=== PATIENT | male | born 1985 | race Hispanic/Latino ===

== ENCOUNTER 2018-01-06 18:26 | Emergency (ER) | payer SELFPAY ==
[2018-01-06] MEDS ORDERED: IBUPROFEN 600 MG TABLET ONE (18:39)
== END 2018-01-06 19:08 | disposition home or self-care (01) ==
LOC: EDH 18:26
DX: S63.591A Other specified sprain of right wrist, initial encounter (principal); Z72.0 Tobacco use; W18.39XA Other fall on same level, initial encounter; Y93.01 Activity, walking, marching and hiking; Y92.098 Other place in other non-institutional residence as the place of occurrence of the external cause; Y99.8 Other external cause status
CPT/HCPCS: 73110

== ENCOUNTER 2018-04-11 00:55 | Emergency (ER) | payer MEDICAID ==
[2018-04-11 01:59] LABS: BASOPHILS % (AUTO) 0.8 % (0.0-5.0); HEMATOCRIT 43.1 % (42-54); LYMPHOCYTES % (AUTO) 18.7 % (21.0-51.0); MEAN CORPUSCULAR HEMOGLOBIN 27.7 pg (27.0-33.0); MEAN CORPUSCULAR HGB CONC 33.2 g/dL (32.0-36.0); MEAN CORPUSCULAR VOLUME 83.5 fL (79-99); MONOCYTES % (AUTO) 6.8 % (3.0-13.0); NEUTROPHILS % (AUTO) 71.7 % (40.0-77.0); NUCLEATED RED BLOOD CELLS 0.1 % (0.0-0.19); PLATELET COUNT (AUTO) 300 K/uL (130-400); RED BLOOD CELL COUNT(AUTO) 5.17 MIL/uL (4.50-6.20); RED CELL DISTRIBUTION WIDTH 14.1 % (11.0-15.5); WHITE BLOOD COUNT (AUTO) 12.2 K/uL (4.8-10.8)
[2018-04-11 02:01] LABS: APPEARANCE,URINE Clear (CLEAR); BILIRUBIN,URINE Negative (NEGATIVE); COLOR,URINE Yellow (YELLOW); GLUCOSE, URINE (UA) Negative (NEGATIVE); KETONES,URINE Negative (NEGATIVE); LEUKOCYTE ESTERASE ,URINE Negative (NEGATIVE); NITRATE,URINE Negative (NEGATIVE); OCCULT BLOOD,URINE Negative (NEGATIVE); PROTEIN,URINE Trace (NEGATIVE)
[2018-04-11 02:10] LABS: CREATININE 1.1 mg/dL (0.5-1.5); POTASSIUM 4.3 mmol/L (3.5-5.1)
[2018-04-11 02:14] LABS: ALBUMIN 3.4 g/dL (3.5-5.0); BILIRUBIN,TOTAL 0.3 mg/dL (0.2-1.0); TOTAL PROTEIN, SERUM 7.5 g/dL (6.0-8.3)
[2018-04-11] MEDS ORDERED: DiphenhydrAMINE HCL 50 MG/ML VIAL ONE (02:27)
[2018-04-11] MEDS ORDERED: SODIUM CHLORIDE 0.9% 1000ML 1,000 ML IV ONE (02:28)
[2018-04-11] MEDS ORDERED: ONDANSETRON HCL MDV 20ML 2 MG/ML VIAL ONE (02:28)
[2018-04-11 04:32] LABS: INR 0.95 (0.85-1.15); PARTIAL THROMBOPLASTIN TIME 24.1 SEC (26.3-35.5)
== END 2018-04-11 05:04 | disposition home or self-care (01) ==
LOC: EDH 00:55
DX: J01.90 Acute sinusitis, unspecified (principal); I10 Essential (primary) hypertension; R79.1 Abnormal coagulation profile; Z72.0 Tobacco use
CPT/HCPCS: 36415; 70450; 80053; 81003; 82150; 83690; 85025; 85610; 85730; 96361; 96374; 96375; 99285; J1200; J7030

== ENCOUNTER 2018-04-12 04:23 | Emergency (ER) | payer MEDICAID, OTHER ==
[2018-04-12] MEDS ORDERED: ACETAMINOPHEN-CODEINE 300/30MG TAB ONE (04:58)
== END 2018-04-12 06:32 | disposition home or self-care (01) ==
LOC: EDH 04:23
DX: S90.32XA Contusion of left foot, initial encounter (principal); S99.912A Unspecified injury of left ankle, initial encounter; R51 Headache; I10 Essential (primary) hypertension; M41.9 Scoliosis, unspecified; Z72.0 Tobacco use; W23.0XXA Caught, crushed, jammed, or pinched between moving objects, initial encounter; Y93.02 Activity, running; Y92.89 Other specified places as the place of occurrence of the external cause; Y99.8 Other external cause status
CPT/HCPCS: 73610; 73630

== ENCOUNTER 2018-04-13 14:38 | Emergency (ER) | payer MEDICAID, OTHER | END 2018-04-13 15:44 | disposition home or self-care (01) | LOC: EDH 14:38 | DX: F41.1 Generalized anxiety disorder (principal); R06.02 Shortness of breath; I10 Essential (primary) hypertension; M41.9 Scoliosis, unspecified | CPT/HCPCS: 71045 ==

== ENCOUNTER 2020-12-24 10:02 | Inpatient (IN) | payer OTHER ==
[~2020-12-24] VITALS: Ht 165.1 cm; Wt 117.9 kg
[2020-12-24] VITALS (15 sets, daily range): BP systolic 129–174; BP diastolic 76–116
[2020-12-24] MEDS ORDERED: SODIUM CHLORIDE 0.9% 1000ML 1,000 ML IV ONE ×2 (10:26→18:34)
[2020-12-24 10:40] LABS: BASOPHILS % (AUTO) 0.5 % (0.0-5.0); EOSINOPHILS % (AUTO) 0.3 % (0.0-8.0); HEMATOCRIT 44.6 % (42-54); LYMPHOCYTES % (AUTO) 10.1 % (21.0-51.0); MEAN CORPUSCULAR HEMOGLOBIN 26.6 pg (27.0-33.0); MEAN CORPUSCULAR HGB CONC 33.2 g/dL (32.0-36.0); MEAN CORPUSCULAR VOLUME 80.1 fL (79-99); MONOCYTES % (AUTO) 8.3 % (3.0-13.0); NEUTROPHILS % (AUTO) 79.1 % (40.0-77.0); PLATELET COUNT (AUTO) 380 K/uL (130-400); RED BLOOD CELL COUNT(AUTO) 5.57 MIL/uL (4.50-6.20); RED CELL DISTRIBUTION WIDTH 13.5 % (11.0-15.5); WHITE BLOOD COUNT (AUTO) 19.5 K/uL (4.8-10.8)
[2020-12-24 10:45] LABS: APPEARANCE,URINE Clear (CLEAR); BILIRUBIN,URINE Negative (NEGATIVE); COLOR,URINE Yellow (YELLOW); GLUCOSE, URINE (UA) >=1000 mg/dL (NEGATIVE); KETONES,URINE >=160 mg/dL (NEGATIVE); LEUKOCYTE ESTERASE ,URINE Negative (NEGATIVE); NITRATE,URINE Negative (NEGATIVE); OCCULT BLOOD,URINE Moderate (NEGATIVE); PH,URINE 5.5 (5.0-8.0); PROTEIN,URINE 300 mg/dL (NEGATIVE); UROBILINOGEN,URINE 0.2 mg/dL (0.2-1.0)
[2020-12-24] MEDS ORDERED: MORPHINE SULFATE 2 MG/ML 1ML SYG ONE (10:46)
[2020-12-24] MEDS ORDERED: ONDANSETRON HCL 4 MG/2 ML VIAL ONE (10:46)
[2020-12-24] MEDS ORDERED: FAMOTIDINE/PF 20 MG/2 ML VIAL IV ONE (10:47)
[2020-12-24 10:51] LABS: AMPHET/METH SCREEN,URINE NEGATIVE (NEGATIVE); BARBITURATE SCREEN, URINE NEGATIVE (NEGATIVE); BENZODIAZEPINES SCREEN,URINE NEGATIVE (NEGATIVE); CANNABINOID SCREEN,URINE NEGATIVE (NEGATIVE); COCAINE SCREEN,URINE NEGATIVE (NEGATIVE); OPIATE SCREEN,URINE NEGATIVE (NEGATIVE); PHENCYCLIDINE SCREEN,URINE NEGATIVE (NEGATIVE)
[2020-12-24 11:04] LABS: CREATININE 0.9 mg/dL (0.5-1.5); POTASSIUM 4.9 mmol/L (3.5-5.1)
[2020-12-24 11:09] LABS: ALBUMIN 3.4 g/dL (3.5-5.0); BILIRUBIN,TOTAL 1.3 mg/dL (0.2-1.0)
[2020-12-24 11:21] LABS: WBC,URINE 0-1 /HPF (0-1)
[2020-12-24 11:22] LABS: BACTERIA,URINE Rare /HPF (None Seen); HYALINE CASTS, URINE 0-1 /LPF (0-1 /LPF); SQUAMOUS EPITHELIAL CELL,UR None Seen /HPF (0-2)
[2020-12-24] MEDS ORDERED: INSULIN REGULAR, HUMAN 3ML 100 UNIT in SODIUM CHLORIDE 0.9% 99 ML IV PRN ×4 (12:15→16:00)
[2020-12-24 13:43] LABS: ABG BASE EXCESS -9.1 mmol/L (-2.0-3.0); ABG HCO3 15.9 mmol/L (21.0-28.0); ABG PCO2 32 mmHg (35-48)
[2020-12-24] MEDS ORDERED: MORPHINE SULFATE 2 MG/ML 1ML SYG IV PRN (16:00)
[2020-12-24] MEDS ORDERED: ACETAMINOPHEN 325 MG TAB PO PRN ×2 (16:00)
[2020-12-24] MEDS ORDERED: ONDANSETRON HCL 4 MG/2 ML VIAL IV PRN (16:00)
[2020-12-24] MEDS ORDERED: ZOSYN 3.375GM+NS 50ML 50 ML IV ONE (16:59)
[2020-12-24 17:01] LABS: CHOLESTEROL 222 mg/dL (<200); LDL DIRECT 56 mg/dL (0-99); LIPASE 432 U/L (114-286); TRIGLYCERIDES 990 mg/dL (30-200)
[2020-12-24] MEDS ORDERED: ACETAMINOPHEN 325 MG TAB ONE (17:03)
[2020-12-24 17:16] LABS: HDL CHOLESTEROL 25 mg/dL (29-71)
[2020-12-24] MEDS: D5W-1/2 NS/20MEQ KCL 1,000 ML IV SCH ×2 (18:45→23:25)
[2020-12-24 19:01] LABS: ALBUMIN 3.1 g/dL (3.5-5.0); BILIRUBIN,TOTAL 0.6 mg/dL (0.2-1.0); CREATININE 0.8 mg/dL (0.5-1.5); POTASSIUM 3.9 mmol/L (3.5-5.1); TOTAL PROTEIN, SERUM 8.1 g/dL (6.0-8.3)
[2020-12-24] MEDS ORDERED: POTASSIUM PHOS 15 mMOL+NS250ML 250 ML IV PRN (20:15)
[2020-12-24] MEDS ORDERED: MAGNESIUM 2GM PREMIX 50ML 50 ML IV PRN (20:15)
[2020-12-24] MEDS ORDERED: POTASSIUM CHLORIDE 20 MEQ ERTAB PO PRN (20:15)
[2020-12-24] MEDS ORDERED: POTASSIUM CHLORIDE 10% ELIXIR 20 MEQ/15 ML UDCUP PO PRN (20:15)
[2020-12-24] MEDS: SODIUM CHLORIDE 0.9% 1000ML 1,000 ML IV SCH (20:27)
[2020-12-24] MEDS: ZOSYN 3.375GM+NS 50ML 50 ML IV SCH (20:27)
[2020-12-24] MEDS: METOPROLOL TARTRATE 25 MG TAB PO SCH (20:28)
[2020-12-24] MEDS ORDERED: LISINOPRIL 5 MG TABLET PO SCH (20:30)
[2020-12-24 22:41] LABS: CREATININE 0.9 mg/dL (0.5-1.5); MAGNESIUM 1.8 mg/dL (1.80-2.40); PHOSPHORUS 2.5 mg/dL (2.5-4.9); POTASSIUM 3.6 mmol/L (3.5-5.1)
[2020-12-24] MEDS: POTASSIUM CHLORIDE 20MEQ/100ML 100 ML IV PRN (23:49)
[2020-12-24] MEDS ORDERED: LIDOCAINE HCL-MPF 1% 2ML VIAL ONE (23:53)
[2020-12-25] VITALS (23 sets, daily range): BP systolic 102–148; BP diastolic 53–93
[2020-12-25] MEDS ORDERED: LIDOCAINE HCL-MPF 1% 2ML VIAL IV PRN
[2020-12-25] MEDS: SODIUM CHLORIDE 0.9% 1000ML 1,000 ML IV SCH ×4 (03:16→22:55)
[2020-12-25] MEDS: ZOSYN 3.375GM+NS 50ML 50 ML IV SCH ×3 (05:15→20:40)
[2020-12-25 05:24] LABS: CREATININE 0.9 mg/dL (0.5-1.5); MAGNESIUM 2.3 mg/dL (1.80-2.40); PHOSPHORUS 5.2 mg/dL (2.5-4.9); POTASSIUM 3.7 mmol/L (3.5-5.1)
[2020-12-25] MEDS: D5W-1/2 NS/20MEQ KCL 1,000 ML IV SCH ×3 (06:05→19:25)
[2020-12-25] MEDS: POTASSIUM CHLORIDE 20MEQ/100ML 100 ML IV PRN (08:26)
[2020-12-25 10:06] LABS: CREATININE 0.9 mg/dL (0.5-1.5); POTASSIUM 4.1 mmol/L (3.5-5.1)
[2020-12-25] MEDS: METOPROLOL TARTRATE 25 MG TAB PO SCH ×2 (10:46→20:41)
[2020-12-25] MEDS: LISINOPRIL 5 MG TABLET PO SCH (10:47)
[2020-12-25] MEDS ORDERED: INSULIN GLARGINE 100 UNITS/ML 10 ML VIAL SQ SCH (11:15)
[2020-12-25] MEDS: INSULIN HUMULIN R 100 UNIT/ML 3ML SQ SCH ×5 (11:30→21:19)
[2020-12-25] MEDS ORDERED: MORPHINE SULFATE 4 MG/1ML SYG ONE (12:05)
[2020-12-25] MEDS ORDERED: MORPHINE SULFATE 4 MG/1ML SYG IM PRN (12:15)
[2020-12-25 17:57] LABS: CREATININE 0.9 mg/dL (0.5-1.5); POTASSIUM 3.7 mmol/L (3.5-5.1)
[2020-12-26] MEDS: D5W-1/2 NS/20MEQ KCL 1,000 ML IV SCH ×4 (02:05→20:54)
[2020-12-26 03:44] VITALS: BP 90/63
[2020-12-26] MEDS: ZOSYN 3.375GM+NS 50ML 50 ML IV SCH ×3 (04:20→20:53)
[2020-12-26] MEDS: SODIUM CHLORIDE 0.9% 1000ML 1,000 ML IV SCH ×3 (05:35→17:37)
[2020-12-26] MEDS: INSULIN HUMULIN R 100 UNIT/ML 3ML SQ SCH ×8 (06:23→21:19)
[2020-12-26 07:41] LABS: BASOPHILS % (AUTO) 0.9 % (0.0-5.0); EOSINOPHILS % (AUTO) 2.9 % (0.0-8.0); HEMATOCRIT 40.3 % (42-54); MEAN CORPUSCULAR HEMOGLOBIN 26.3 pg (27.0-33.0); MEAN CORPUSCULAR HGB CONC 32.5 g/dL (32.0-36.0); MEAN CORPUSCULAR VOLUME 80.9 fL (79-99); MONOCYTES % (AUTO) 9.1 % (3.0-13.0); NEUTROPHILS % (AUTO) 61.3 % (40.0-77.0); PLATELET COUNT (AUTO) 320 K/uL (130-400); RED BLOOD CELL COUNT(AUTO) 4.98 MIL/uL (4.50-6.20); WHITE BLOOD COUNT (AUTO) 7.6 K/uL (4.8-10.8)
[2020-12-26 07:55] LABS: HEMOGLOBIN A1C 12.8 % (4.0-6.0)
[2020-12-26 07:56] LABS: ALBUMIN 2.7 g/dL (3.5-5.0); BILIRUBIN,TOTAL 0.5 mg/dL (0.2-1.0); CREATININE 0.9 mg/dL (0.5-1.5); POTASSIUM 3.6 mmol/L (3.5-5.1); TOTAL PROTEIN, SERUM 7.3 g/dL (6.0-8.3)
[2020-12-26] MEDS ORDERED: INSULIN GLARGINE 100 UNITS/ML 10 ML VIAL SQ SCH (08:00)
[2020-12-26 08:12] VITALS: BP 119/72
[2020-12-26] MEDS: METOPROLOL TARTRATE 25 MG TAB PO SCH ×2 (09:55→21:17)
[2020-12-26] MEDS: LISINOPRIL 5 MG TABLET PO SCH (09:55)
[2020-12-26 11:28] VITALS: BP 98/65
[2020-12-26 16:36] VITALS: BP 103/53
[2020-12-26 20:18] VITALS: BP 115/68
[2020-12-26 23:18] VITALS: BP 104/65
[2020-12-27] MEDS: SODIUM CHLORIDE 0.9% 1000ML 1,000 ML IV SCH (01:59)
[2020-12-27 03:41] VITALS: BP 123/69
[2020-12-27] MEDS: D5W-1/2 NS/20MEQ KCL 1,000 ML IV SCH (04:45)
[2020-12-27] MEDS: ZOSYN 3.375GM+NS 50ML 50 ML IV SCH (05:31)
[2020-12-27] MEDS: INSULIN HUMULIN R 100 UNIT/ML 3ML SQ SCH ×4 (06:34→12:06)
[2020-12-27] MEDS ORDERED: INSULIN GLARGINE 100 UNITS/ML 10 ML VIAL SQ SCH (08:00)
[2020-12-27] MEDS: METOPROLOL TARTRATE 25 MG TAB PO SCH (08:35)
[2020-12-27] MEDS: LISINOPRIL 5 MG TABLET PO SCH (08:35)
[2020-12-27 08:36] VITALS: BP 107/67
[2020-12-27 12:00] VITALS: BP 119/54
[2020-12-27 16:31] VITALS: BP 108/59
== END 2020-12-27 15:30 | disposition home or self-care (01) | DRG 638 ==
LOC: EDH 10:02 → EDHIP 10:03 → 2CH 17:46 → 3BH 12-25 21:37
PROVIDERS: ADMIT Internal Medicine; ATTEND Internal Medicine
DX: E11.10 Type 2 diabetes mellitus with ketoacidosis without coma (principal); E87.1 Hypo-osmolality and hyponatremia; D72.829 Elevated white blood cell count, unspecified; E86.0 Dehydration; K76.0 Fatty (change of) liver, not elsewhere classified; I10 Essential (primary) hypertension; M41.9 Scoliosis, unspecified; F41.9 Anxiety disorder, unspecified; E78.1 Pure hyperglyceridemia; Z83.3 Family history of diabetes mellitus; Z82.49 Family history of ischemic heart disease and other diseases of the circulatory system; Z82.5 Family history of asthma and other chronic lower respiratory diseases; Z86.14 Personal history of Methicillin resistant Staphylococcus aureus infection
CPT/HCPCS: 36415; 36600; 74176; 76705; 80048; 80053; 80061; 80305; 81001; 82550; 82803; 82948; 83036; 83605; 83690; 83735; 84100; 84478; 85025; 87040; 93005; G0378; J1815; J2270; J2405; J2543; J3475; J3480; J3490; J7030

== ENCOUNTER 2023-05-12 16:02 | Emergency (ER) | payer OTHER ==
[~2023-05-12] VITALS: Ht 167.6 cm; Wt 108.0 kg
[2023-05-12 19:30] VITALS: BP 122/74
== END 2023-05-12 19:37 | disposition home or self-care (01) ==
LOC: EDH 16:02
DX: S63.592A Other specified sprain of left wrist, initial encounter (principal); E11.9 Type 2 diabetes mellitus without complications; X58.XXXA Exposure to other specified factors, initial encounter; Y93.89 Activity, other specified; Y92.89 Other specified places as the place of occurrence of the external cause; Y99.8 Other external cause status
CPT/HCPCS: 73110

== ENCOUNTER 2025-07-31 13:50 | Emergency (ER) | payer SELFPAY ==
[~2025-07-31] VITALS: Ht 165.1 cm; Wt 98.9 kg
--- NOTE | 2025-07-31 14:05 | ERN ---
General Chief Complaint: Low Back Pain/Injury Stated Complaint: LOW BACK PAIN Time Seen by MD: 13:51 Source: patient History of Present Illness Initial Comments Patient is a 40-year-old male coming in complaining of right hip pain. Per patient he was lifting up his significant other. He states that the pain is present in the right hip region radiating down the leg. He is able to ambulate with some discomfort. Allergies: Coded Allergies: No Known Drug Allergies (Unverified Allergy, Unknown, 05/08/17) Home Meds No Active Prescriptions or Reported Meds Past Medical History Past Medical History: Diabetes-Type II, Other Medical History Other: DKA Past Surgical History: None ROS Dictation CONSTITUTIONAL: No chills, no fever, no weakness, no diaphoresis, no malaise. HEAD/FACE: No signs of trauma. EENT: No eye pain, no blurred vision, no tearing, no double vision, no ear pain, no ear discharge, no nose pain, no nasal congestion, no throat pain, no throat swelling, no mouth pain. RESPIRATORY: No cough, no orthopnea, no SOB, no stridor, no wheezing. CARDIOVASCULAR: No chest pain, no edema, no palpitations, no syncope. GASTROINTESTINAL/ABDOMINAL: No abdominal pain, no constipation, no diarrhea, no nausea, no vomiting. GENITOURINARY: No abnormal discharge, no dysuria, no frequent urination, no hematuria. No complaints of pain in the genitals. MUSCULOSKELETAL: back pain, no gout, joint pain, no joint swelling, muscle pain, no muscle stiffness, no neck pain. INTEGUMENTARY: No change in color, no change in hair/nails, no dryness, no lesion, no lumps, no rash. NEUROLOGICAL/PSYCH: No anxiety, not depressed, no emotional problem, no headache, no numbness, no pre-existing deficit, no history of seizures, no tremors, no weakness. HEMATOLOGIC/LYMPHATIC: Not anemic, no history of blood clots, no apparent bleeding, no bruising, glands not swollen. All Systems Negative, Except as Noted. Physical Exam Physical Exam Dictation VITAL SIGNS: Reviewed. GENERAL APPEARANCE: Alert, oriented x3, no acute distress, obese. HEAD AND FACE: Non-traumatic. EYES: PERRL, pink conjunctivas, eyelid no trauma, anterior chamber clear. EARS: Pinnas intact and no signs of trauma or erythema. Ear canals clear and no discharge. TMs no erythema. NOSE: No discharge, no bleeding. OROPHARYNX: Mouth normal, teeth no caries, tongue pink. Pharynx clear, no erythema. Tonsils no exudates, no abscesses noted. Mucous membrane moist. NECK: Supple, non-tender, no thyromegaly, no masses, no JVD, no bruits. BREAST: Deferred. CHEST: No tenderness, no crepitus, no paradoxical movement, no retractions. LUNGS: Clear, well-ventilated, symmetric, no rales, no wheezing, no rhonchi, no stridor, good breath sounds bilaterally. HEART: Regular rate, regular rhythm, no murmur, no gallops. VASCULAR: No peripheral edema. ABDOMEN: Soft, positive bowel sounds, nondistended, no guarding, nontender, no rebound, no masses no hepatomegaly, no splenomegaly, no Dos Santos's sign, no h ernias. RECTAL: Deferred. GENITAL: Deferred. NEUROLOGICAL: Normal speech, gross motor function intact, gross sensory functi on intact. MUSCULOSKELETAL: Neck nontender, full range of motion, back nontender, full range of motion. EXTREMITIES: Nontender, full range of motion. SKIN: Color pink, dry, no turgor, no rash, no lacerations, no abrasions, no contusions. LYMPHATICS: Deferred. Results Laboratory and Microbiology Labs Reviewed?: Yes MDM MDM: Differential diagnosis: Back strain, lumbar strain, Rationale: Tests considered and ordered secondary to shared decision making include: Previous outside records reviewed: Old ER visits. Risk of complication and/or morbidity or mortality of patient management: None Medications-Per medication reconciliation Need for hospitalization: Patient does not meet criteria for hospitalization. Need for emergency major/minor surgery: No Patient is a 40-year-old male coming in complaining of right hip strain after he was trying to lift his . Patient was treated with anti-inflammatories and antispasmodics lidocaine patches also placed. We will treat the pain conservatively due to the mechanism of injury at the also advised him appropriate follow up with PCP for long-term management. ED Course Orders Procedure Category Date Status Time Orphenadrine Citrate PHA 07/31/25 Complete (Norflex) 14:00 Ketorolac PHA 07/31/25 Complete Tromethamine 30mg/Ml 14:00 Current Medications Medications (Trade) Dose Ordered Sig/Elizabeth Route PRN Reason Start Time Stop Time Status Last Admin Dose Admin Ketorolac Tromethamine (toRADol) 30 mg ONCE ONCE IM 07/31/25 14:00 07/31/25 14:01 DC 07/31/25 14:29 Orphenadrine Citrate (Norflex) 60 mg ONCE ONCE IM 07/31/25 14:00 07/31/25 14:01 DC 07/31/25 14:29 Vital Signs Date Time Temp Pulse Resp B/P (MAP) Pulse Ox O2 Delivery O2 Flow Rate FiO2 07/31/25 14:20 98.1 65 16 125/70 98 Room Air* 0 21 07/31/25 13:51 98.1 68 16 126/72 97 Room Air DX & DISP Disposition: Discharge Departure Impression: Primary Impression: Strain of muscle, fascia and tendon of lower back, in itial encounter Additional Impression: Hip strain Condition: Stable Scripts Naproxen (Naproxen) 500 Mg Tablet 1 TAB PO BID for pain for 7 Days, #14 TAB 0 Refills Prov: GAURAV LORENZ MD 07/31/25 Methocarbamol (Robaxin) 750 Mg Tab 1 TAB PO BID for 7 Days, #14 TAB 0 Refills Prov: GAURAV LORENZ MD 07/31/25 Additional Instructions: FOLLOW-UP WITH PRIMARY CARE PROVIDER IN 1 TO 2 DAYS. TAKE MEDICATIONS DIRECTED HERE IN THE EMERGENCY ROOM. OKAY TO CONTINUE HOME MEDICATIONS UNLESS OTHERWISE DISCUSSED DURING YOUR VISIT IN THE EMERGENCY ROOM TODAY. RETURN TO YOUR NEAREST EMERGENCY ROOM IF SYMPTOMS WORSEN OR IF THERE IS NO IMPROVEMENT. CALL 911 IF YOU NEED IMMEDIATE ASSISTANCE. TAKE TYLENOL [id number] NEEDED AND IF NO CONTRAINDICATIONS ARE PRESENT. INCREASE ORAL HYDRATION. A WOUND CULTURE OR URINE CULTURE WAS ORDERED HERE IN THE EMERGENCY ROOM DEPARTMENT PLEASE FOLLOW-UP WITH PRIMARY CARE PROVIDER AND ADVISE THEM TO GET REPORTS FROM OUR FACILITY. IF YOU HAD ANY RICKIE WRAP/SPLINTS THAT WERE APPLIED HERE, PLEASE DO NOT REMOVE THEM UNTIL YOU SEE YOUR PRIMARY CARE OR SPECIALTY. Referrals: Referrals: SELF,REFERRAL (PCP) MIKALA MOREL MD Time of Disposition: 14:49 GAURAV LORENZ MD Jul 31, 2025 14:05
[2025-07-31 14:20] VITALS: BP 125/70; PULSE 65; RESP 16; TEMP 98; O2SAT 98
[2025-07-31] MEDS: ORPHENADRINE 60MG/2ML IM ONE (14:29)
[2025-07-31] MEDS ORDERED: METH-662 PO (14:50)
[2025-07-31] MEDS ORDERED: NAPR-1194 PO (14:50)
[2025-07-31] MEDS: LIDOCAINE 4% ADH..PATCH TP ONE (14:59)
== END 2025-07-31 15:20 | disposition home or self-care (01) ==
LOC: EDH 13:50
DX: S39.012A Strain of muscle, fascia and tendon of lower back, initial encounter (principal); S76.011A Strain of muscle, fascia and tendon of right hip, initial encounter; E11.9 Type 2 diabetes mellitus without complications; X50.9XXA Other and unspecified overexertion or strenuous movements or postures, initial encounter; Y93.89 Activity, other specified; Y92.89 Other specified places as the place of occurrence of the external cause; Y99.8 Other external cause status
CPT/HCPCS: 99284; 96372 ×2; J1885; J2360

== ENCOUNTER 2025-08-03 13:25 | Emergency (ER) | payer SELFPAY ==
[~2025-08-03] VITALS: Ht 165.1 cm; Wt 98.9 kg
[~2025-08-03 13:25] MED LIST: METH-662 PO; NAPR-1194 PO
[2025-08-03 13:51] LABS: IMMATURE GRANULOCYTE ABSOLUTE 0.09 K/uL (0-1); NUCLEATED RED BLOOD CELLS 0.0 % (0.0-0.19); PLATELET COUNT (AUTO) 375 K/uL (130-400); RED BLOOD CELL COUNT(AUTO) 5.42 MIL/uL (4.50-6.20); RED CELL DISTRIBUTION WIDTH 13.4 % (11.0-15.5); WHITE BLOOD COUNT (AUTO) 11.2 K/uL (4.8-10.8)
[2025-08-03 13:59] LABS: CREATININE 0.9 mg/dL (0.5-1.3); GLOMERULAR FILTR. RATE CALC 112.0 mL/min (>90); GLUCOSE,RANDOM 113.0 mg/dL (70-105); SODIUM SERUM 138.0 mmol/L (136-145); UREA NITROGEN, BLOOD 12.0 mg/dL (7-18)
--- NOTE | 2025-08-03 14:10 | ERN ---
ED Note History of Present Illness Stated Complaint: HIP INJURY/ BLOODY STOOL Chief Complaint: Hip Pain/Injury Time Seen by MD: 13:32 Time Seen by Midlevel: 13:35 Dictation: 40-year-old male coming in with complaints of low back pain and right hip pain. Patient states this started on the . Patient states he was seen here and was diagnosed with a a strained muscle however states the pain has not resolved. Last time he took his muscle relaxer was yesterday. Denies having any incontinence, urinary retention, unilateral weakness or numbness. Allergies: Coded Allergies: No Known Drug Allergies (Unverified Allergy, Unknown, 05/08/17) Home Meds Active Scripts Naproxen (Naproxen) 500 Mg Tablet, 1 TAB PO BID for pain for 7 Days, #14 TAB 0 Refills Prov:GAURAV LORENZ MD 07/31/25 Methocarbamol (Robaxin) 750 Mg Tab, 1 TAB PO BID for 7 Days, #14 TAB 0 Refills Prov:GAURAV LORENZ MD 07/31/25 Past Medical History Past Medical History: Diabetes-Type II, Other Additional Past Medical Hx: SCOLIOSIS Surgical History: None Review of System Dictation Constitutional: Negative for fever,chills, and weight loss Eyes: Negative for injury, pain,redness, and discharge ENT: Negative for injury,pain or swelling Cardiovascular: Negative for chest pain, palpitations, and edema Respiratory: Negative for shortness of breath, cough, and wheezing, Abdomen/GI: Negative for abdominal pain, nausea, vomiting, diarrhea, and constipation Back: Complaining of lower back pain and tailbone pain and right hip pain : Negative for injury, bleeding and discharge MS/Extremity: Negative for injury and deformity Skin: Negative for rash, and discoloration Neuro: Negative for headache, weakness, numbness, tingling, and seizure Psych: Negative for suicide ideation, homicidal ideation, and hallucinations Review of Systems: was completed Initial Vital Sign VS Vital Signs Date Time Temp Pulse Resp B/P (MAP) Pulse Ox O2 Delivery O2 Flow Rate FiO2 08/03/25 13:30 99.1 80 12 132/72 97 Room Air 0 08/03/25 14:30 21 Physical Exam Dictation General: awake, alert, NAD Head/Face: Normocephalic, atraumatic Eyes: PERRL, EOMI, vision at baseline ENT: oral cavity clear, TMs clear, no signs of infection Neck: Trachea midline, supple, no nuchal rigidity Cardiovascular: RRR, normal S1/S2, No MRGs, no JVD Respiratory: CTAB, no respiratory distress, No rales or wheezes Abdomen: Soft, non-tender, non-distended, normal bowel sounds, no guarding or rebound. Skin: Warm, dry, normal turgor, no rash MS/Extremity: Pulses equal, no cyanosis, neurovascular intact, FROM Neuro: COAx4, GCS 15, strength 5/5, CN 2-12 intact, normal cerebellar exam, normal gait, Psych: Normal behavior, mood, and affect normal Results (Laboratory/Radiology) Laboratory/Radiology Laboratory Tests Test 08/03/25 13:44 White Blood Count 11.2 K/uL (4.8-10.8) H Red Blood Count 5.42 MIL/uL (4.50-6.20) Hemoglobin 15.9 g/dL (14.0-18.0) Hematocrit 47.7 % (42-54) Mean Corpuscular Volume 88.0 fL (79-99) Mean Corpuscular Hemoglobin 29.3 pg (27.0-33.0) Mean Corpuscular Hemoglobin Concent 33.3 g/dL (32.0-36.0) Red Cell Distribution Width 13.4 % (11.0-15.5) Platelet Count 375 K/uL (130-400) Mean Platelet Volume 11.0 fL (7.5-10.5) H Immature Granulocyte % (Auto) 0.8 % (0-1) Neutrophils (%) (Auto) 68.9 % (40.0-77.0) Lymphocytes (%) (Auto) 19.1 % (21.0-51.0) L Monocytes (%) (Auto) 8.3 % (3.0-13.0) Eosinophils (%) (Auto) 2.2 % (0.0-8.0) Basophils (%) (Auto) 0.7 % (0.0-5.0) Neutrophils # (Auto) 7.7 K/uL (1.8-7.7) Lymphocytes # (Auto) 2.1 K/uL (1.0-4.8) Monocytes # (Auto) 0.9 K/uL (0.1-1.0) Eosinophils # (Auto) 0.24 K/uL (0.00-0.70) Basophils # (Auto) 0.08 K/uL (0.00-0.20) Absolute Immature Granulocyte (auto 0.09 K/uL (0-1) Nucleated Red Blood Cells 0.0 % (0.0-0.19) Sodium Level 138 mmol/L (136-145) Potassium Level 4.4 mmol/L (3.5-5.1) Chloride Level 101 mmol/L (101-111) Carbon Dioxide Level 32 mmol/L (21-32) Blood Urea Nitrogen 12 mg/dL (7-18) Creatinine 0.9 mg/dL (0.5-1.3) Glomerular Filtration Rate Calc 112 mL/min (>90) Random Glucose 113 mg/dL (70-105) H Total Calcium 8.9 mg/dL (8.5-10.1) Labs Reviewed?: Yes X-RAY Comment: [address] [id number] IMAGING REPORT Signed PATIENT: NARGIS HOLCOMB MR#: [id number] : 1985 SEX: M AGE: 40 LOCATION: [facility] ORDER [id number] STATUS: [facility] REPORT#: [id number] SERVICE 1336 REASON: pain ORDERING PHYSICIAN: RAUL PRUETT NP PROCEDURE: PELVIS - PELVIS 1-2VWS EXAM: CR Pelvis, 1 View. CLINICAL HISTORY: pain COMPARISON: None provided. FINDINGS: BONES: No acute fracture or aggressive appearing osseous lesion. JOINTS: No dislocation. The joint spaces are normal. SOFT TISSUES: The soft tissues are unremarkable. IMPRESSION: No acute osseous abnormality. /[place] DICTATED BY: KAPIL FRANCISCO Jr., MD DATE: 08/03/251516 ELECTRONICALLY SIGNED BY: KAPIL FRANCISCO Jr., MD DATE: 08/03/251516 [address] [address] IMAGING REPORT Signed PATIENT: NARGIS HOLCOMB MR#: [id number] : 1985 SEX: M AGE: 40 LOCATION: [facility] ORDER 1340 STATUS: REG ER REPORT#: [id number] SERVICE 1336 REASON: pain ORDERING PHYSICIAN: RAUL PRUETT NP PROCEDURE: LUMB 2 3VW - LUMBAR SPINE 2-3VWS EXAM: CR Lumbar Spine, 2 View. CLINICAL HISTORY: pain COMPARISON: None provided. FINDINGS: BONES: No acute fracture or aggressive appearing osseous lesion. ALIGNMENT: Alignment is within normal limits. No significant scoliosis. DISCS / DEGENERATIVE CHANGES: The disc spaces are preserved. SOFT TISSUES: The soft tissues are unremarkable. IMPRESSION: No acute lumbar spine abnormality evident. /[place] DICTATED BY: KAPIL FRANCISCO Jr., MD DATE: 08/03/251516 ELECTRONICALLY SIGNED BY: KAPIL FRANCISCO Jr., MD DATE: 08/03/251516 ED Course ED Course Orders Procedure Category Date Status Time Cbc With Differential LAB 08/03/25 Complete 13:36 Basic Metabolic Panel LAB 08/03/25 Complete 13:36 Occult Blood Stool LAB 08/03/25 Logged Single Only 13:36 Lumbar Spine 2-3vws RAD 08/03/25 Resulted 13:36 Pelvis 1-2vws RAD 08/03/25 Resulted 13:36 Morphine 4mg Syg PHA 08/03/25 Complete (Morphine 4mg Syg) 13:36 Orphenadrine Citrate PHA 08/03/25 Complete (Norflex) 13:36 Ketorolac PHA 08/03/25 Complete Tromethamine 15mg/Ml 13:36 Current Medications Medications (Trade) Dose Ordered Sig/Elizabeth Route PRN Reason Start Time Stop Time Status Last Admin Dose Admin Ketorolac Tromethamine (toRADol) 15 mg ONCE STAT IM 08/03/25 13:36 08/03/25 13:40 DC 08/03/25 14:46 Morphine Sulfate (morPHINE 4MG SYG) 4 mg ONCE STAT IM 08/03/25 13:36 08/03/25 13:40 DC Orphenadrine Citrate (Norflex) 60 mg ONCE STAT IM 08/03/25 13:36 08/03/25 13:40 DC 08/03/25 14:47 Vital Signs Date Time Temp Pulse Resp B/P (MAP) Pulse Ox O2 Delivery O2 Flow Rate FiO2 08/03/25 14:30 98.2 68 18 144/78 100 Room Air* 0 21 08/03/25 13:30 99.1 80 12 132/72 97 Room Air 0 Medical Decision Making MDM MDM: 40-year-old male coming in with complaints of low back pain and right hip pain. Patient states this started on the . Patient states he was seen here and was diagnosed with a a strained muscle however states the pain has not resolved. Last time he took his muscle relaxer was yesterday. Denies having any incontinence, urinary retention, unilateral weakness or numbness. Patient also stated he has been having blood streaks in his stool. Patient states he just take very frequent some ibuprofen due to his scoliosis. Blood work unremarkable. X-rays unremarkable. On 11/25 to perform a rectal exam to look for any polyps, tita blood, or hemorrhoids, however patient refused. Educated patient the importance of having the rectal exam still refused. Educated patient then to stop taking some ibuprofen or naproxen and started taking Tylenol see if this helps resolve that problem and also in case he is straining he needs to take some stool softeners. Patient verbalized understanding, answered all questions. Patient also refusing pain medication here in the ER, states he just wanted to be checked to see if anything was broken. Differential diagnosis: Strain, hair fracture, GI bleed Rationale: Tests considered and ordered secondary to shared decision making include: Previous outside records reviewed: Old ER visits. Risk of complication and/or morbidity or mortality of patient management: None Medications-Per medication reconciliation Need for hospitalization: Patient does not meet criteria for hospitalization. Need for emergency major/minor surgery: No There are no social concerns with this patient. Prescription drug management Prescriptions will include symptomatic care Patient's prior external medical records from other ER visits were reviewed by me as indicated. Prior testing and results from previous visits were reviewed. Prior tests were taken into account with medical decision making and resource utilization, independent historian/historians were used to obtain complete medical history. I independently interpreted the test that were performed, results were reviewed by me and considered findings on radiology if ordered. Medical management and examination interpretation discussions were had by me with other qualified healthcare professionals as indicated for the patient's care. DX & DISP Disposition: Discharge Departure Impression: Primary Impression: Hip strain Additional Impression: Strain of muscle, fascia and tendon of lower back, initial encounter Condition: Stable Additional Instructions: If you are straining to have a bowel movement please take stool softeners. Stop taking the ibuprofen or naproxen for your scoliosis, take more Tylenol every 6-8 hours and follow up with your PCP. If anything worsens please return back to the emergency room. Referrals: SELF,REFERRAL (PCP) Time of Disposition: 14:54 I have reviewed the case, and I agree with, Diagnosis and Plan RAUL PRUETT NP Aug 03, 2025 14:10
--- NOTE | 2025-08-03 14:18 | HMCIMG ---
EXAM: CR Lumbar Spine, 2 View. CLINICAL HISTORY: pain COMPARISON: None provided. FINDINGS: BONES: No acute fracture or aggressive appearing osseous lesion. ALIGNMENT: Alignment is within normal limits. No significant scoliosis. DISCS / DEGENERATIVE CHANGES: The disc spaces are preserved. SOFT TISSUES: The soft tissues are unremarkable. IMPRESSION: No acute lumbar spine abnormality evident. /[place]
--- NOTE | 2025-08-03 14:19 | HMCIMG ---
EXAM: CR Pelvis, 1 View. CLINICAL HISTORY: pain COMPARISON: None provided. FINDINGS: BONES: No acute fracture or aggressive appearing osseous lesion. JOINTS: No dislocation. The joint spaces are normal. SOFT TISSUES: The soft tissues are unremarkable. IMPRESSION: No acute osseous abnormality. /[place]
[2025-08-03] MEDS: ORPHENADRINE 60MG/2ML IM STA (14:47)
[2025-08-03 15:15] VITALS: BP 140/72; PULSE 68; RESP 18; TEMP 98.2; O2SAT 97
== END 2025-08-03 15:19 | disposition home or self-care (01) ==
LOC: EDH 13:25
DX: S76.011A Strain of muscle, fascia and tendon of right hip, initial encounter (principal); S39.012A Strain of muscle, fascia and tendon of lower back, initial encounter; E11.9 Type 2 diabetes mellitus without complications; Z79.899 Other long term (current) drug therapy; X58.XXXA Exposure to other specified factors, initial encounter; Y93.89 Activity, other specified; Y92.89 Other specified places as the place of occurrence of the external cause; Y99.8 Other external cause status
CPT/HCPCS: 99284; 80048; 85025; 36415; 72100; 72170; 96372 ×2; J1885; J2270; J2360

== ENCOUNTER 2025-08-16 01:23 | Emergency (ER) | payer SELFPAY ==
[~2025-08-16] VITALS: Ht 165.1 cm; Wt 98.9 kg
[2025-08-16 01:24] VITALS: BP 114/75; PULSE 65; RESP 20; TEMP 97.9
[2025-08-16] MEDS ORDERED: IBUP-1492 PO (01:39)
--- NOTE | 2025-08-16 01:43 | ERN ---
ED Note History of Present Illness Stated Complaint: C/O PAIN TO RT HIP/LOWER BACK PAIN; INJURY ON Chief Complaint: Low Back Pain/Injury Time Seen by MD: :25 Dictation: 40-YEAR-OLD MALE PRESENTS TO ER STATES HE CONTINUES WITH RIGHT HIP PAIN. PATIENT STATES HE WAS SEEN HERE ABOUT 10 DAYS AGO AND WAS TOLD HAD A MUSCLE DURING HIS RIGHT HIP. X-RAYS NEGATIVE AT THAT TIME. PATIENT STATES HE CONT INUES WITH THE PAIN AND THOUGHT HE COME IN TODAY FOR FURTHER EVALUATION LIKE AN MRI Allergies: Coded Allergies: No Known Drug Allergies (Unverified Allergy, Unknown, 05/08/17) Home Meds Active Scripts Naproxen (Naproxen) 500 Mg Tablet, 1 TAB PO BID for pain for 7 Days, #14 TAB 0 Refills Prov:GAURAV LORENZ MD 07/31/25 Methocarbamol (Robaxin) 750 Mg Tab, 1 TAB PO BID for 7 Days, #14 TAB 0 Refills Prov:GAURAV LORENZ MD 07/31/25 Past Medical History Past Medical History: Diabetes-Type II Additional Past Medical Hx: SCOLIOSIS Surgical History: None Review of System Dictation CONSTITUTIONAL: NEGATIVE FOR FEVER,CHILLS, AND WEIGHT LOSS EYES: NEGATIVE FOR INJURY, PAIN,REDNESS, AND DISCHARGE ENT: NEGATIVE FOR INJURY,PAIN OR SWELLING CARDIOVASCULAR: NEGATIVE FOR CHEST PAIN, PALPITATIONS, AND EDEMA RESPIRATORY: NEGATIVE FOR SHORTNESS OF BREATH, COUGH, WHEEZING, AND PLEURITIC CHEST PAIN ABDOMEN/GI: NEGATIVE FOR ABDOMINAL PAIN, NAUSEA, VOMITING AND DIARRHEA. BACK: NEGATIVE FOR PAIN OR INJURY : NEGATIVE FOR INJURY, BLEEDING AND DISCHARGE MS/EXTREMITY: POSITIVE FOR PAIN IN INJURY SKIN: NEGATIVE FOR RASH, AND DISCOLORATION NEURO: NEGATIVE FOR HEADACHE, WEAKNESS, NUMBNESS, TINGLING, AND SEIZURE PSYCH: NEGATIVE FOR SUICIDE IDEATION, HOMICIDAL IDEATION, AND HALLUCINATIONS ALLERGY/IMMUNOLOGY: NEGATIVE FOR HIVES, RASH, AND ALLERGIES ALL SYSTEMS NEGATIVE, EXCEPT NOTED ABOVE. 13 POINT REVIEW OF SYSTEMS ASSESSED AND ALL NEGATIVE EXCEPT FOR ABOVE. Initial Vital Sign VS Vital Signs Date Time Temp Pulse Resp B/P (MAP) Pulse Ox O2 Delivery O2 Flow Rate FiO2 08/16/25 01:24 97.9 65 20 114/75 97 Room Air Physical Exam Dictation GENERAL: AWAKE, ALERT, NAD HEAD/FACE: NORMOCEPHALIC, ATRAUMATIC EYES: PERRL, EOMI, VISION AT BASELINE ENT: ORAL CAVITY CLEAR, TMS CLEAR, NO SIGNS OF INFECTION NECK: TRACHEA MIDLINE, SUPPLE, NO NUCHAL RIGIDITY CARDIOVASCULAR: RRR, NORMAL S1/S2, NO MRGS, NO JVD RESPIRATORY: CTAB, NO RESPIRATORY DISTRESS, NO RALES OR WHEEZES ABDOMEN: SOFT, NON-TENDER, NON-DISTENDED, NORMAL BOWEL SOUNDS, NO GUARDING OR REBOUND. SKIN: WARM, DRY, NORMAL TURGOR, NO RASH MS/EXTREMITY: PULSES EQUAL, NO CYANOSIS, NEUROVASCULAR INTACT, PAIN TO RIGHT HIP WITH RANGE OF MOTION NEURO: COAX4, GCS 15, STRENGTH 5/5, CN 2-12 INTACT, NORMAL CEREBELLAR EXAM, NORMAL GAIT, PSYCH: NORMAL BEHAVIOR, MOOD, AND AFFECT NORMAL ED Course ED Course Vital Signs Date Time Temp Pulse Resp B/P (MAP) Pulse Ox O2 Delivery O2 Flow Rate FiO2 08/16/25 01:24 97.9 65 20 114/75 97 Room Air Medical Decision Making MDM MDM: DIFFERENTIAL DIAGNOSIS: HIP STRAIN, SPRAIN, CONTUSION RATIONALE: TESTS CONSIDERED AND ORDERED SECONDARY TO SHARED DECISION MAKING INCLUDE: LABS, ECG AND RADIOLOGY PREVIOUS OUTSIDE RECORDS REVIEWED: OLD ER VISITS. RISK OF COMPLICATION AND/OR MORBIDITY OR MORTALITY OF PATIENT MANAGEMENT: NONE MEDICATIONS-PER MEDICATION RECONCILIATION NEED FOR HOSPITALIZATION: PATIENT DOES NOT MEET CRITERIA FOR HOSPITALIZATION. NEED FOR EMERGENCY MAJOR/MINOR SURGERY: NO THERE ARE NO SOCIAL CONCERNS WITH THIS PATIENT. PRESCRIPTION DRUG MANAGEMENT PRESCRIPTIONS WILL INCLUDE SYMPTOMATIC CARE PATIENT'S PRIOR EXTERNAL MEDICAL RECORDS FROM OTHER ER VISITS WERE REVIEWED BY ME INDICATED. PRIOR TESTING AND RESULTS FROM PREVIOUS VISITS WERE REVIEWED. PRIOR TESTS WERE TAKEN INTO ACCOUNT WITH MEDICAL DECISION MAKING AND RESOURCE UTILIZATION, INDEPENDENT HISTORIAN/HISTORIANS WERE USED TO OBTAIN COMPLETE MEDICAL HISTORY. I INDEPENDENTLY INTERPRETED THE TEST THAT WERE PERFORMED, RESULTS WERE REVIEWED BY ME AND CONSIDERED FINDINGS ON RADIOLOGY IF ORDERED. PATIENT VSS, NAD, NONTOXIC, STABLE FOR DISCHARGE. PT GIVEN DISCHARGE I NSTRUCTIONS IN [place] TERMS AND UNDERSTOOD, ALL QUESTIONS ANSWERED. PT WILL FOLLOW UP WITH PCP AND RETURN TO THE ER IF WORSE. PATIENT ADVISED HE NEEDS TO FOLLOW UP WITH SPECIALIST IF HE CONTINUES WITH PAIN. NO ACUTE DISTRESS NOTED AT THIS TIME. PULSES EQUAL, NO SWELLING NO REDNESS. DX & DISP Disposition: Discharge Departure Impression: Primary Impression: Hip strain Condition: Stable Scripts Ibuprofen (Ibuprofen) 600 Mg Tablet 1 TAB PO TID for pain, #15 TAB 0 Refills with food Prov: MADELIN BARTH NP 08/16/25 Additional Instructions: YOU NEED TO FOLLOW UP WITH MAINTENANCE SUPERVISOR OR A BACK SPECIALIST IF YOU CONTINUE WITH PAIN. TAKE MEDICATION FOR PAIN CONTROL PRESCRIBED. FOLLOW-UP WITH YOUR PCP IN 24-72 HOURS AND IN THE EVENT IF SYMPTOMS WORSEN OR AN EMERGENCY OVERNIGHT REPORT TO THE ED IMMEDIATELY Referrals: SELF,REFERRAL (PCP) MADELIN BARTH NP Aug 16, 2025 01:43
== END 2025-08-16 02:08 | disposition home or self-care (01) ==
LOC: EDH 01:23
DX: S76.011A Strain of muscle, fascia and tendon of right hip, initial encounter (principal); E11.9 Type 2 diabetes mellitus without complications; X58.XXXA Exposure to other specified factors, initial encounter; Y93.89 Activity, other specified; Y92.89 Other specified places as the place of occurrence of the external cause; Y99.8 Other external cause status
CPT/HCPCS: 99282